=== PATIENT | male | born 1955 | race American Indian/Alaskan Native ===

== ENCOUNTER 2018-04-20 07:58 | Outpatient (CLI) | payer BC ==
[2018-04-20] MEDS ORDERED: XYLOCAINE TOPICAL 4% TP ONE (08:23)
== END 2018-04-20 07:59 | disposition home or self-care (01) ==
LOC: WOUND 07:58
PROVIDERS: ATTEND Surgery
DX: E11.622 Type 2 diabetes mellitus with other skin ulcer (principal); L97.822 Non-pressure chronic ulcer of other part of left lower leg with fat layer exposed; L97.322 Non-pressure chronic ulcer of left ankle with fat layer exposed; S81.801D Unspecified open wound, right lower leg, subsequent encounter; M10.9 Gout, unspecified; Z86.718 Personal history of other venous thrombosis and embolism; X58.XXXD Exposure to other specified factors, subsequent encounter
CPT/HCPCS: 11042; 11045; G0463; 99205

== ENCOUNTER 2018-04-27 08:11 | Outpatient (CLI) | payer BC ==
[2018-04-27] MEDS ORDERED: XYLOCAINE TOPICAL 4% TP ONE (08:31)
[2018-04-27] MEDS ORDERED: SILVER NITRATE TP ONE (08:55)
== END 2018-04-27 08:12 | disposition home or self-care (01) ==
LOC: WOUND 08:11
PROVIDERS: ATTEND Surgery
DX: E11.622 Type 2 diabetes mellitus with other skin ulcer (principal); L97.822 Non-pressure chronic ulcer of other part of left lower leg with fat layer exposed; L97.322 Non-pressure chronic ulcer of left ankle with fat layer exposed; M10.9 Gout, unspecified; Z86.718 Personal history of other venous thrombosis and embolism

== ENCOUNTER 2018-05-04 08:15 | Outpatient (CLI) | payer BC ==
[2018-05-04] MEDS ORDERED: XYLOCAINE TOPICAL 4% TP ONE (08:45)
== END 2018-05-04 08:16 | disposition home or self-care (01) ==
LOC: WOUND 08:15
PROVIDERS: ATTEND Surgery
DX: E11.622 Type 2 diabetes mellitus with other skin ulcer (principal); L97.822 Non-pressure chronic ulcer of other part of left lower leg with fat layer exposed; L97.322 Non-pressure chronic ulcer of left ankle with fat layer exposed; M10.9 Gout, unspecified; Z86.718 Personal history of other venous thrombosis and embolism

== ENCOUNTER 2018-05-25 08:01 | Outpatient (CLI) | payer BC ==
[2018-05-25] MEDS ORDERED: XYLOCAINE TOPICAL 4% TP ONE (11:00)
== END 2018-05-25 08:02 | disposition home or self-care (01) ==
LOC: WOUND 08:01
PROVIDERS: ATTEND Surgery
DX: E11.622 Type 2 diabetes mellitus with other skin ulcer (principal); L97.822 Non-pressure chronic ulcer of other part of left lower leg with fat layer exposed; L97.322 Non-pressure chronic ulcer of left ankle with fat layer exposed; M10.9 Gout, unspecified; Z86.718 Personal history of other venous thrombosis and embolism

== ENCOUNTER 2018-06-08 08:10 | Outpatient (CLI) | payer BC ==
[2018-06-08] MEDS ORDERED: XYLOCAINE TOPICAL 4% TP ONE (09:00)
[2018-06-08] MEDS ORDERED: AD OINTMENT TP SCH (10:00)
== END 2018-06-08 08:11 | disposition home or self-care (01) ==
LOC: WOUND 08:10
PROVIDERS: ATTEND Surgery
DX: E11.622 Type 2 diabetes mellitus with other skin ulcer (principal); L97.322 Non-pressure chronic ulcer of left ankle with fat layer exposed; L97.822 Non-pressure chronic ulcer of other part of left lower leg with fat layer exposed; M10.9 Gout, unspecified; Z86.718 Personal history of other venous thrombosis and embolism
CPT/HCPCS: A6250

== ENCOUNTER 2018-06-29 08:13 | Outpatient (CLI) | payer BC ==
[2018-06-29] MEDS ORDERED: XYLOCAINE TOPICAL 4% TP ONE (09:30)
[2018-06-29] MEDS ORDERED: AD OINTMENT TP SCH (10:00)
== END 2018-06-29 08:14 | disposition home or self-care (01) ==
LOC: WOUND 08:13
PROVIDERS: ATTEND Surgery
DX: E11.622 Type 2 diabetes mellitus with other skin ulcer (principal); L97.322 Non-pressure chronic ulcer of left ankle with fat layer exposed; L97.822 Non-pressure chronic ulcer of other part of left lower leg with fat layer exposed; M10.9 Gout, unspecified
CPT/HCPCS: A6250

== ENCOUNTER 2018-07-20 08:09 | Outpatient (CLI) | payer BC ==
[2018-07-20] MEDS ORDERED: XYLOCAINE TOPICAL 4% TP ONE (08:15)
[2018-07-20] MEDS ORDERED: AD OINTMENT TP SCH (10:00)
== END 2018-07-20 08:10 | disposition home or self-care (01) ==
LOC: WOUND 08:09
PROVIDERS: ATTEND Surgery
DX: E11.622 Type 2 diabetes mellitus with other skin ulcer (principal); L97.322 Non-pressure chronic ulcer of left ankle with fat layer exposed; L97.822 Non-pressure chronic ulcer of other part of left lower leg with fat layer exposed; E11.621 Type 2 diabetes mellitus with foot ulcer; L97.522 Non-pressure chronic ulcer of other part of left foot with fat layer exposed; M10.9 Gout, unspecified

== ENCOUNTER 2018-07-27 07:54 | Outpatient (CLI) | payer BC ==
[2018-07-27] MEDS ORDERED: XYLOCAINE TOPICAL 4% TP ONE (08:45)
== END 2018-07-27 07:55 | disposition home or self-care (01) ==
LOC: WOUND 07:54
PROVIDERS: ATTEND Surgery
DX: E11.622 Type 2 diabetes mellitus with other skin ulcer (principal); L97.322 Non-pressure chronic ulcer of left ankle with fat layer exposed; L97.822 Non-pressure chronic ulcer of other part of left lower leg with fat layer exposed; E11.621 Type 2 diabetes mellitus with foot ulcer; L97.522 Non-pressure chronic ulcer of other part of left foot with fat layer exposed; M10.9 Gout, unspecified; Z86.718 Personal history of other venous thrombosis and embolism; Z86.711 Personal history of pulmonary embolism

== ENCOUNTER 2018-08-10 07:56 | Outpatient (CLI) | payer BC ==
[2018-08-10] MEDS ORDERED: XYLOCAINE TOPICAL 4% TP ONE (08:20)
[2018-08-10] MEDS ORDERED: AD OINTMENT TP SCH (10:00)
== END 2018-08-10 07:57 | disposition home or self-care (01) ==
LOC: WOUND 07:56
PROVIDERS: ATTEND Surgery
DX: E11.622 Type 2 diabetes mellitus with other skin ulcer (principal); L97.522 Non-pressure chronic ulcer of other part of left foot with fat layer exposed; L97.321 Non-pressure chronic ulcer of left ankle limited to breakdown of skin; M10.9 Gout, unspecified; Z86.718 Personal history of other venous thrombosis and embolism; Z86.711 Personal history of pulmonary embolism
CPT/HCPCS: 29581; A6250

== ENCOUNTER 2018-08-17 07:57 | Outpatient (CLI) | payer BC ==
[2018-08-17] MEDS ORDERED: XYLOCAINE TOPICAL 4% TP ONE (08:07)
[2018-08-17] MEDS ORDERED: SILVER NITRATE TP ONE (08:08)
[2018-08-17] MEDS ORDERED: AD OINTMENT TP SCH (10:00)
== END 2018-08-17 07:58 | disposition home or self-care (01) ==
LOC: WOUND 07:57
PROVIDERS: ATTEND Surgery
DX: E11.622 Type 2 diabetes mellitus with other skin ulcer (principal); L97.822 Non-pressure chronic ulcer of other part of left lower leg with fat layer exposed; M10.9 Gout, unspecified; Z86.718 Personal history of other venous thrombosis and embolism; Z86.711 Personal history of pulmonary embolism
CPT/HCPCS: 29581

== ENCOUNTER 2018-08-24 08:13 | Outpatient (CLI) | payer BC | END 2018-08-24 08:14 | disposition home or self-care (01) | LOC: WOUND 08:13 | PROVIDERS: ATTEND Surgery | DX: E11.622 Type 2 diabetes mellitus with other skin ulcer (principal); L97.822 Non-pressure chronic ulcer of other part of left lower leg with fat layer exposed; M10.9 Gout, unspecified; Z86.718 Personal history of other venous thrombosis and embolism; Z86.711 Personal history of pulmonary embolism | CPT/HCPCS: 99214; G0463 ==

== ENCOUNTER 2018-09-07 08:03 | Outpatient (CLI) | payer BC | END 2018-09-07 08:04 | disposition home or self-care (01) | LOC: WOUND 08:03 | PROVIDERS: ATTEND Surgery | DX: E11.622 Type 2 diabetes mellitus with other skin ulcer (principal); L97.822 Non-pressure chronic ulcer of other part of left lower leg with fat layer exposed; M10.9 Gout, unspecified; Z86.711 Personal history of pulmonary embolism; Z86.718 Personal history of other venous thrombosis and embolism | CPT/HCPCS: 99213; G0463 ==